=== PATIENT | female | born 1975 | race African-American/Black ===

== ENCOUNTER 2016-08-14 01:08 | Emergency (ER) | payer MEDICAID, OTHER ==
[~2016-08-14] VITALS: Ht 157.5 cm; Wt 62.0 kg
[~2016-08-14 01:08] MED LIST: HYDR12.54 PO
[2016-08-14 07:03] LABS: CLARITY URINE CLEAR (CLEAR); COLOR URINE YELLOW (YELLOW); GLUCOSE URINE NEGATIVE (NEGATIVE); KETONES URINE TRACE (NEGATIVE); LEUKOCYTE ESTERASE URINE NEGATIVE (NEGATIVE); NITRITE URINE NEGATIVE (NEGATIVE); OCCULT BLOOD URINE 1+ (NEGATIVE); PROTEIN URINE NEGATIVE (NEGATIVE); SPECIFIC GRAVITY URINE 1.011 (1.005-1.030)
[2016-08-14] MEDS ORDERED: ACETAMINOPHEN 500MG TABLET PO ONE (07:30)
[2016-08-14 08:25] LABS: BASOPHILS % 0.8 % (0.0-2.0); EOSINOPHILS % 3.1 % (0.0-5.0); HEMATOCRIT. 39.7 % (36.0-48.0); HEMOGLOBIN. 13.1 g/dL (12.0-16.0); LYMPHOCYTES % 28.9 % (20.0-50.0); MEAN CORPUSCULAR VOLUME 75.5 fL (81.0-99.0); MEAN PLATELET VOLUME 8.9 fl (7.4-10.4); MONOCYTES % 7.7 % (2.0-8.0); NEUTROPHILS % 59.5 % (40.0-76.0); PLATELET 249 x1000/uL (130-400); RED BLOOD CELL COUNT 5.25 mill/uL (4.2-5.4); RED CELL DISTRIBUTION WIDTH 13.8 % (11.6-14.6)
[2016-08-14 08:29] LABS: CHLORIDE 101 mEq/L (98-107)
[2016-08-14 08:37] LABS: CARBON DIOXIDE 30 mEq/L (21-32)
[2016-08-14 10:26] VITALS: BP 138/84
== END 2016-08-14 10:42 | disposition home or self-care (01) ==
LOC: ER 01:08
DX: G44.89 Other headache syndrome (principal); I10 Essential (primary) hypertension; G40.909 Epilepsy, unspecified, not intractable, without status epilepticus; J45.909 Unspecified asthma, uncomplicated
CPT/HCPCS: 36415; 70450; 80053; 81001; 81025; 83690; 85025; 99285; Z7610

== ENCOUNTER 2017-07-08 01:07 | Emergency (ER) | payer MEDICAID, OTHER ==
[~2017-07-08] VITALS: Ht 167.6 cm; Wt 61.0 kg
[2017-07-08] MEDS ORDERED: TETANUS, DIPHTHERIA, PERTUSSIS VAC/PF 0.5ML (>7YR OLD) IM ONE (03:00)
[2017-07-08] MEDS ORDERED: LIDOCAINE HCL 1% 20ML VIAL (Pyxis) INJ MC ONE (03:00)
[2017-07-08] MEDS ORDERED: LIDOCAINE HCL/PF 1% 10 MG/ML 5ML VIAL IJ NR (03:00)
[2017-07-08 04:30] VITALS: BP 140/78
== END 2017-07-08 04:50 | disposition home or self-care (01) ==
LOC: ER 01:07
DX: S01.111A Laceration without foreign body of right eyelid and periocular area, initial encounter (principal); J45.909 Unspecified asthma, uncomplicated; I10 Essential (primary) hypertension; W45.8XXA Other foreign body or object entering through skin, initial encounter; Y93.89 Activity, other specified; Y92.89 Other specified places as the place of occurrence of the external cause; Y99.8 Other external cause status
CPT/HCPCS: 12011; 90471; 90715; 99283; X7700; Z7610; J3490

== ENCOUNTER 2022-10-14 23:16 | Emergency (ER) | payer MEDICAID, OTHER ==
[~2022-10-14] VITALS: Ht 157.5 cm; Wt 64.0 kg
[2022-10-14 23:43] VITALS: TEMP 98.2; O2SAT 100
[2022-10-15] MEDS ORDERED: METHOCARBAMOL 500MG TABLET PO ONE (02:30)
[2022-10-15] MEDS ORDERED: KETOROLAC 30MG/ML VIAL IM ONE (02:30)
[2022-10-15] MEDS ORDERED: IBUP-2029 MT (03:16)
[2022-10-15] MEDS ORDERED: METH-653 MT (03:16)
[2022-10-15 04:16] VITALS: BP 130/98; PULSE 74; RESP 16
== END 2022-10-15 04:29 | disposition home or self-care (01) ==
LOC: ER 23:16
DX: M54.2 Cervicalgia (principal); M54.50 Low back pain, unspecified; J45.909 Unspecified asthma, uncomplicated; I10 Essential (primary) hypertension; V49.49XA Driver injured in collision with other motor vehicles in traffic accident, initial encounter; Y93.89 Activity, other specified; Y92.89 Other specified places as the place of occurrence of the external cause; Y99.8 Other external cause status
CPT/HCPCS: 81025; 99285; 73562; 70450; 72125; 72131; 96372; J1885; Z7610

== ENCOUNTER 2023-03-20 09:10 | Emergency (ER) | payer MEDICAID, OTHER ==
[~2023-03-20] VITALS: Ht 160 cm; Wt 68.0 kg
[~2023-03-20 09:10] MED LIST changes: +IBUP-2029 MT; +METH-653 MT
[2023-03-20 09:27] VITALS: BP 159/95; PULSE 87; RESP 16; TEMP 98.7; O2SAT 99
== END 2023-03-20 13:11 | disposition home or self-care (01) ==
LOC: ER 09:10
DX: S60.212A Contusion of left wrist, initial encounter (principal); J45.909 Unspecified asthma, uncomplicated; I10 Essential (primary) hypertension; Z98.890 Other specified postprocedural states; Z98.51 Tubal ligation status; Z88.8 Allergy status to other drugs, medicaments and biological substances; W18.39XA Other fall on same level, initial encounter; Y93.89 Activity, other specified; Y92.89 Other specified places as the place of occurrence of the external cause; Y99.8 Other external cause status
CPT/HCPCS: 73110; 29125; 99283; Z7610; A4565